=== PATIENT | female | born 1975 | race African-American/Black ===

== ENCOUNTER 2018-04-15 11:38 | Emergency (ER) | payer OTHER ==
[~2018-04-15] VITALS: Ht 160 cm; Wt 77.3 kg
[~2018-04-15 11:38] MED LIST: NOCURR
[2018-04-15] MEDS ORDERED: BUSP5TAB20 PO (11:45)
[2018-04-15] MEDS ORDERED: MELA5TAB3 PO (11:45)
[2018-04-15] MEDS ORDERED: BACL10TA PO (11:45)
[2018-04-15] MEDS ORDERED: KETOROLAC TROMETHAMINE 60 MG/2 ML VIAL IM ONE (12:30)
[2018-04-15 14:03] VITALS: BP 136/77
== END 2018-04-15 14:05 | disposition home or self-care (01) ==
LOC: EMS 11:41
DX: J40 Bronchitis, not specified as acute or chronic (principal); F15.90 Other stimulant use, unspecified, uncomplicated; Z79.899 Other long term (current) drug therapy; Z88.5 Allergy status to narcotic agent
CPT/HCPCS: 71046; 96372; 99283; J1885